=== PATIENT | male | born 1950 | race Caucasian/White ===

== ENCOUNTER → 2016-07-14 | Outpatient (CLI) | payer OTHER ==
[~2016-07-14] MED LIST: CIPR-255 PO; CLC100 PO; CYAN100020 PO; DTR5 PO; ERGO1TAB10 PO; ESCI1TAB6 PO; FBR PO; HYDR-3785 PO; HYDR-5688 PO; LINA1CAP2 PO; NMN10 PO; OMEG10007 PO; OXYC7.5T62 PO; PREG1CAP28 PO; PRLSR20 PO; VAREPAK PO
[2016-07-14 13:20] LABS: BLOOD UREA NITROGEN 10 mg/dl (7-18); BUN/CREATININE RATIO 12.3 (10-20); CREATININE 0.83 mg/dl (0.60-1.40)
[2016-07-14 13:24] LABS: PROSTATE SPECIFIC ANTIGEN 0.026 ng/ml (0.000-4.000)
== END | disposition home or self-care (01) ==
LOC: C.LAB 11:35
PROVIDERS: ATTEND Urology
DX: C61 Malignant neoplasm of prostate (principal)